=== PATIENT | male | born 1960 | race Caucasian/White ===

== ENCOUNTER 2021-01-23 10:31 | Emergency (ER) | payer OTHER ==
[2021-01-23 10:54] VITALS: BP 116/97; PULSE 120
[2021-01-23] MEDS ORDERED: Sodium Chloride 0.9% 10 ML Syringe FLUSH PRN ×2 (11:05→13:32)
[2021-01-23] MEDS ORDERED: Iopamidol 755 Mg/ML 100 ML Bottle IVPUSH ONE (13:32)
[2021-01-23] MEDS ORDERED: Sodium Chloride 0.9% 100 ML IV SCH (13:45)
--- NOTE | 2021-01-23 13:59 | EDM.PDOC ---
ED HPI GENERAL MEDICAL PROBLEM - General Chief Complaint: Cardiovascular Problem Stated Complaint: RAPID HEART RATE Time Seen by Provider: 01/23/21 10:51 Source of Information: Reports: Patient History Limitations: Reports: No Limitations - History of Present Illness INITIAL COMMENTS - FREE TEXT/NARRATIVE: The patient presents with generalized weakness and tachycardia. This has been going on for about a week. He has no fever, chills, cough, chest pain, shortness of breath, abdominal pain, nausea or vomiting. He has no history of heart problems or lung problems. His 2 weeks ago. He has been under lots of stress. He has not been around anyone who is sick. Onset: Gradual Duration: Day(s): (7) Severity: Moderate Improves with: Reports: None Worsens with: Reports: None Associated Symptoms: Reports: No Other Symptoms - Related Data Allergies Allergy/AdvReac Type Severity Reaction Status Date / Time No Known Allergies Allergy Verified 01/23/21 11:02 Home Meds: Home Meds . [No Known Home Meds] 08/17/15 [History] Past Medical History - Past Health History Medical/Surgical History: Denies Medical/Surgical History HEENT History: Reports: Impaired Vision Other HEENT History: wears eyeglasses. Gastrointestinal History: Reports: Chronic Constipation Musculoskeletal History: Reports: Fracture - Infectious Disease History Infectious Disease History: Reports: Chicken Pox, Measles - Past Surgical History HEENT Surgical History: Reports: Tonsillectomy Musculoskeletal Surgical History: Reports: ORIF, Other (See Below) Other Musculoskeletal Surgeries/Procedures:: L) knee Social & Family History - Tobacco Use Tobacco Use Status *Q: Never Tobacco User Second Hand Smoke Exposure: No - Caffeine Use Caffeine Use: Reports: None - Recreational Drug Use Recreational Drug Use: No - Living Situation & Occupation Living situation: Reports: , with Spouse Occupation: Employed ED ROS GENERAL - Review of Systems Review Of Systems: See Below Constitutional: Reports: Malaise, Weakness, Fatigue. Denies: Fever, Chills HEENT: Reports: No Symptoms Respiratory: Reports: No Symptoms Cardiovascular: Reports: Palpitations. Denies: Chest Pain Endocrine: Reports: Fatigue GI/Abdominal: Reports: No Symptoms : Reports: No Symptoms Musculoskeletal: Reports: No Symptoms ED EXAM, GENERAL - Physical Exam Exam: See Below Exam Limited By: No Limitations General Appearance: Alert, No Apparent Distress Ears: Normal External Exam Nose: Normal Inspection Head: Atraumatic, Normocephalic Neck: Normal Inspection Respiratory/Chest: No Respiratory Distress, Lungs Clear, Normal Breath Sounds Cardiovascular: Regular Rate, Rhythm, No Edema, No Murmur GI/Abdominal: Soft, Non-Tender, No Organomegaly, No Mass Back Exam: Normal Inspection Extremities: Normal Inspection #1 Interpretation EKG Date: 01/23/21 Time: 10:47 Rhythm: Other (sinus tachycardia) Rate (Beats/Min): 110 [place]: LAD-Left [place] Deviation P-Wave: Present QRS: Normal ST-T: Normal QT: Normal Course - Vital Signs Last Recorded V/S: Last Vital Signs Temp 96.1 F L 01/23/21 10:40 Pulse 120 H 01/23/21 10:40 Resp 20 01/23/21 10:40 BP 116/97 H 01/23/21 10:40 Pulse Ox 97 01/23/21 10:40 - Orders/Labs/Meds Orders: Active Orders 24 hr Category Date Time Status Cardiac Monitoring [RC] . DIRECTED Care 01/23/21 11:05 Active Peripheral IV Care [RC] . DIRECTED Care 01/23/21 11:07 Active Vital Signs [RC] Q15M Care 01/23/21 14:30 Active EPINEPHrine [Adrenalin] Med 01/23/21 14:30 Active 0.3 mg IM ASDIRECTED PRN Famotidine [Pepcid] Med 01/23/21 14:30 Active 20 mg IVPUSH ASDIRECTED PRN Sodium Chloride 0.9% [Normal Saline] 100 ml Med 01/23/21 13:45 Active IV ASDIRECTED Sodium Chloride 0.9% [Saline Flush] Med 01/23/21 11:05 Active 10 ml FLUSH ASDIRECTED PRN Sodium Chloride 0.9% [Saline Flush] Med 01/23/21 13:32 Active 10 ml FLUSH ONETIME PRN Sodium Chloride 0.9% [Saline Flush] Med 01/23/21 14:30 Active 30 ml FLUSH ASDIRECTED diphenhydrAMINE [Benadryl] Med 01/23/21 14:30 Active 50 mg IVPUSH ASDIRECTED PRN methylPREDNISolone Sod Succ [Solu-MEDROL] Med 01/23/21 14:30 Active 125 mg IVPUSH ASDIRECTED PRN Peripheral IV Insertion Adult [OM.PC] Stat Oth 01/23/21 11:05 Ordered Medication Orders Diphenhydramine HCl (Diphenhydramine 50 Mg/Ml Sdv) 50 mg IVPUSH ASDIRECTED PRN PRN Reason: hypersensitivity reaction Epinephrine HCl (Epinephrine 1 Mg/Ml Sdv) 0.3 mg IM ASDIRECTED PRN PRN Reason: hypersensitivity reaction Famotidine (Famotidine 20 Mg/2 Ml Sdv) 20 mg IVPUSH ASDIRECTED PRN PRN Reason: hypersensitivity reaction Sodium Chloride (Normal Saline) 100 mls @ 60 mls/hr IV ASDIRECTED KYLE Last Admin: 01/23/21 13:35 Dose: 60 mls/hr Documented by: MAYTE Methylprednisolone Sodium Succinate (Methylprednisolone Sodium Succinate 125 Mg/2 Ml Sdv) 125 mg IVPUSH ASDIRECTED PRN PRN Reason: hypersensitivity reaction Sodium Chloride (Sodium Chloride 0.9% 10 Ml Syringe) 10 ml FLUSH ASDIRECTED PRN PRN Reason: Keep Vein Open Last Admin: 01/23/21 11:27 Dose: 10 ml Documented by: DANIEL Sodium Chloride (Sodium Chloride 0.9% 10 Ml Syringe) 10 ml FLUSH ONETIME PRN PRN Reason: Keep Vein Open Last Admin: 01/23/21 13:35 Dose: 10 ml Documented by: MAYTE Sodium Chloride (Sodium Chloride 0.9% 10 Ml Syringe) 30 ml FLUSH ASDIRECTED [facility] Labs: Laboratory Tests 01/23/21 01/23/21 01/23/21 Range/Units 11:22 11:22 11:22 WBC 3.99 L (4.23-9.07) K/mm3 RBC 5.00 (4.63-6.08) M/mm3 Hgb 14.8 (13.7-17.5) gm/dl Hct 43.2 (40.1-51.0) % MCV 86.4 (79.0-92.2) fl MCH 29.6 (25.7-32.2) pg MCHC 34.3 (32.2-35.5) g/dl RDW Std Deviation 39.9 (35.1-43.9) fL Plt Count 304 D (163-337) K/mm3 MPV 11.5 (9.4-12.3) fl Neut % (Auto) 54.8 (34.0-67.9) % Lymph % (Auto) 30.3 (21.8-53.1) % [place] % (Auto) 11.5 (5.3-12.2) % Eos % (Auto) 1.3 (0.8-7.0) Baso % (Auto) 1.3 H (0.1-1.2) % Neut # (Auto) 2.19 (1.78-5.38) K/mm3 Lymph # (Auto) 1.21 L (1.32-3.57) K/mm3 [place] # (Auto) 0.46 (0.30-0.82) K/mm3 Eos # (Auto) 0.05 (0.04-0.54) K/mm3 Baso # (Auto) 0.05 (0.01-0.08) K/mm3 PT 10.7 (9.7-12.0) SECONDS INR 0.96 APTT 22.9 (21.7-31.4) SECONDS D-Dimer, Quantitative 2.40 H (0.19-0.50) mg/L Sodium 136 (136-145) mEq/L Potassium 3.5 (3.5-5.1) mEq/L Chloride 100 (98-107) mEq/L Carbon Dioxide 25 (21-32) mEq/L Anion Gap 14.5 (5-15) BUN 16 (7-18) mg/dL Creatinine 1.3 (0.7-1.3) mg/dL Est Cr Clr Drug Dosing 62.39 mL/min Estimated GFR (MDRD) 56 (>60) mL/min BUN/Creatinine Ratio 12.3 L (14-18) Glucose 127 H (70-99) mg/dL Calcium 9.2 (8.5-10.1) mg/dL Magnesium 2.0 (1.8-2.4) mg/dL Total Bilirubin 0.7 (0.2-1.0) mg/dL AST 46 H (15-37) U/L ALT 83 H (16-63) U/L Alkaline Phosphatase 76 (46-116) U/L Troponin I < 0.017 (0.00-0.056) ng/mL C-Reactive Protein 0.2 (<1.0) mg/dL NT-Pro-B Natriuret Pep (0-125) pg/mL Total Protein 7.2 (6.4-8.2) g/dl Albumin 3.4 (3.4-5.0) g/dl Globulin 3.8 gm/dL Albumin/Globulin Ratio 0.9 L (1-2) Free T4 1.15 (0.76-1.46) ng/dL TSH 3rd Generation 1.698 (0.358-3.74) uIU/mL SARS-CoV-2 RNA (STACEY) (NEGATIVE) 01/23/21 01/23/21 Range/Units 11:22 11:22 WBC (4.23-9.07) K/mm3 RBC (4.63-6.08) M/mm3 Hgb (13.7-17.5) gm/dl Hct (40.1-51.0) % MCV (79.0-92.2) fl MCH (25.7-32.2) pg MCHC (32.2-35.5) g/dl RDW Std Deviation (35.1-43.9) fL Plt Count (163-337) K/mm3 MPV (9.4-12.3) fl Neut % (Auto) (34.0-67.9) % Lymph % (Auto) (21.8-53.1) % [place] % (Auto) (5.3-12.2) % Eos % (Auto) (0.8-7.0) Baso % (Auto) (0.1-1.2) % Neut # (Auto) (1.78-5.38) K/mm3 Lymph # (Auto) (1.32-3.57) K/mm3 [place] # (Auto) (0.30-0.82) K/mm3 Eos # (Auto) (0.04-0.54) K/mm3 Baso # (Auto) (0.01-0.08) K/mm3 PT (9.7-12.0) SECONDS INR APTT (21.7-31.4) SECONDS D-Dimer, Quantitative (0.19-0.50) mg/L Sodium (136-145) mEq/L Potassium (3.5-5.1) mEq/L Chloride (98-107) mEq/L Carbon Dioxide (21-32) mEq/L Anion Gap (5-15) BUN (7-18) mg/dL Creatinine (0.7-1.3) mg/dL Est Cr Clr Drug Dosing mL/min Estimated GFR (MDRD) (>60) mL/min BUN/Creatinine Ratio (14-18) Glucose (70-99) mg/dL Calcium (8.5-10.1) mg/dL Magnesium (1.8-2.4) mg/dL Total Bilirubin (0.2-1.0) mg/dL AST (15-37) U/L ALT (16-63) U/L Alkaline Phosphatase (46-116) U/L Troponin I (0.00-0.056) ng/mL C-Reactive Protein (<1.0) mg/dL NT-Pro-B Natriuret Pep 76 (0-125) pg/mL Total Protein (6.4-8.2) g/dl Albumin (3.4-5.0) g/dl Globulin gm/dL Albumin/Globulin Ratio (1-2) Free T4 (0.76-1.46) ng/dL TSH 3rd Generation (0.358-3.74) uIU/mL SARS-CoV-2 RNA (STACEY) Positive H (NEGATIVE) Meds: Medications Generic Name Dose Route Start Last Admin Trade Name Freq PRN Reason Stop Dose Admin Diphenhydramine HCl 50 mg 01/23/21 14:30 Diphenhydramine 50 Mg/Ml Sdv IVPUSH ASDIRECTED PRN hypersensitivity reaction Epinephrine HCl 0.3 mg 01/23/21 14:30 Epinephrine 1 Mg/Ml Sdv IM ASDIRECTED PRN hypersensitivity reaction Famotidine 20 mg 01/23/21 14:30 Famotidine 20 Mg/2 Ml Sdv IVPUSH ASDIRECTED PRN hypersensitivity reaction Sodium Chloride 100 mls @ 60 mls/hr 01/23/21 13:45 01/23/21 13:35 Normal Saline IV 60 mls/hr ASDIRECTED KYLE Administration Methylprednisolone Sodium Succinate 125 mg 01/23/21 14:30 Methylprednisolone Sodium Succinate 125 Mg/2 Ml Sdv IVPUSH ASDIRECTED PRN hypersensitivity reaction Sodium Chloride 10 ml 01/23/21 11:05 01/23/21 11:27 Sodium Chloride 0.9% 10 Ml Syringe FLUSH 10 ml ASDIRECTED PRN Administration Keep Vein Open Sodium Chloride 10 ml 01/23/21 13:32 01/23/21 13:35 Sodium Chloride 0.9% 10 Ml Syringe FLUSH 10 ml ONETIME PRN Administration Keep Vein Open Sodium Chloride 30 ml 01/23/21 14:30 Sodium Chloride 0.9% 10 Ml Syringe FLUSH ASDIRECTED KYLE Discontinued Medications Generic Name Dose Route Start Last Admin Trade Name [place] PRN Reason Stop Dose Admin Bamlanivimab 700 mg/ 160 mls @ 310 mls/hr 01/23/21 15:00 01/23/21 15:14 Etesevimab 1,400 mg/ Sodium IV 01/23/21 15:30 310 mls/hr Chloride ONETIME ONE Administration Iopamidol 100 ml 01/23/21 13:32 01/23/21 13:35 Iopamidol 755 Mg/Ml 100 Ml Bottle IVPUSH 01/23/21 13:33 100 ml ONETIME ONE Administration - Re-Assessments/Exams Free Text/Narrative Re-Assessment/Exam: 01/23/21 14:20 I ordered an EKG, labs, and COVID. His EKG shows a sinus tachycardia with no acute changes. His WBC was low at 3.99. His D-dimer was elevated at 2.4. His glucose was elevated at 127. His AST is elevated at 46. His ALT is elevated at 83. His troponin is negative. His CRP is normal. His BNP is normal. His TSH is normal along with his T4. He is COVID [address] positive[address] I ordered a CT angio and it shows no findings of pulmonary embolism. Patchy densities within the perihilar regions within both upper and lower lungs as well as minimal peripheral densities within the left upper lung. Findings are most likely due to prominent bronchitis and perihilar pneumonia. Please rule out any symptoms of COVID disease. 01/23/21 14:32 I spoke with the patient to provide information about monoclonal antibody treatment. I offered them the Patient and Caregiver EUA REGEN-COV Fact Sheet to read and review. I stated the drug has been approved by an emergency use authorization (EUA} process and has not fully been FDA reviewed or approved. The patient meets the EUA requirements. I discussed there are other potential treatment options that are currently not FDA approved to treat COVID 19. Offered opportunity to ask questions and all questions were answered. The patient voiced understanding and agreed to proceed with treatment. I have ordered Bam for the patient. I will discharge him after that. 01/23/21 15:52 Departure - Departure Time of Disposition: 15:55 Disposition: Home, Self-Care 01 Condition: Good Clinical Impression: COVID-19, Pneumonia due to COVID-19 virus, Palpitations Referrals: PCP,None [Primary Care Provider] - Riki Lynn MD [Physician] - 1 Week Forms: ED Department Discharge Additional Instructions: Go home and rest. Drink plenty of fluids. Take tylenol or motrin for any fever or pain. If you are laying around try to lay on your stomach. That will allow the most lung tissue to be oxygenated. Please return if you are worse. Sepsis Event Note (ED) - Evaluation Sepsis Screening Result: No Definite Risk - Focused Exam Vital Signs: Vital Signs Temp Pulse Resp BP Pulse Ox 01/23/21 10:40 96.1 F L 120 H 20 116/97 H 97 - My Orders Last 24 Hours: My Active Orders 01/23/21 11:05 Cardiac Monitoring [RC] . DIRECTED Sodium Chloride 0.9% [Saline Flush] 10 ml FLUSH ASDIRECTED PRN Peripheral IV Insertion Adult [OM.PC] Stat 01/23/21 11:07 Peripheral IV Care [RC] . DIRECTED 01/23/21 13:32 Sodium Chloride 0.9% [Saline Flush] 10 ml FLUSH ONETIME PRN 01/23/21 13:45 Sodium Chloride 0.9% [Normal Saline] 100 ml IV ASDIRECTED 01/23/21 14:30 Vital Signs [RC] Q15M EPINEPHrine [Adrenalin] 0.3 mg IM ASDIRECTED PRN Famotidine [Pepcid] 20 mg IVPUSH ASDIRECTED PRN Sodium Chloride 0.9% [Saline Flush] 30 ml FLUSH ASDIRECTED diphenhydrAMINE [Benadryl] 50 mg IVPUSH ASDIRECTED PRN methylPREDNISolone Sod Succ [Solu-MEDROL] 125 mg IVPUSH ASDIRECTED PRN - Assessment/Plan Last 24 Hours: My Active Orders 01/23/21 11:05 Cardiac Monitoring [RC] . DIRECTED Sodium Chloride 0.9% [Saline Flush] 10 ml FLUSH ASDIRECTED PRN Peripheral IV Insertion Adult [OM.PC] Stat 01/23/21 11:07 Peripheral IV Care [RC] . DIRECTED 01/23/21 13:32 Sodium Chloride 0.9% [Saline Flush] 10 ml FLUSH ONETIME PRN 01/23/21 13:45 Sodium Chloride 0.9% [Normal Saline] 100 ml IV ASDIRECTED 01/23/21 14:30 Vital Signs [RC] Q15M EPINEPHrine [Adrenalin] 0.3 mg IM ASDIRECTED PRN Famotidine [Pepcid] 20 mg IVPUSH ASDIRECTED PRN Sodium Chloride 0.9% [Saline Flush] 30 ml FLUSH ASDIRECTED diphenhydrAMINE [Benadryl] 50 mg IVPUSH ASDIRECTED PRN methylPREDNISolone Sod Succ [Solu-MEDROL] 125 mg IVPUSH ASDIRECTED PRN
--- NOTE | 2021-01-23 14:02 | CT ---
CT chest Technique: Multiple axial sections were obtained through the chest. Intravenous contrast was utilized. Study has been performed as a pulmonary angiogram protocol. Comparison: No prior chest imaging is available. Findings: Pulmonary arteries are fairly well opacified. No filling defects are seen to indicate pulmonary embolism. Thoracic aorta shows no aneurysm. Several small mediastinal lymph nodes are seen which are felt to be within normal limits. No pericardial thickening is seen. Small hiatal hernia is noted. Visualized upper abdominal structures show nothing acute. Lung window settings show scattered perihilar densities within the upper and lower lungs as well as minimal peripheral density within the left upper lung. There is increased density being seen within the left subareolar region compatible with unilateral gynecomastia. Bone window settings were reviewed which show mild scattered degenerative change within the spine. No acute osseous abnormality is appreciated. Impression: 1. No findings of pulmonary embolism. 2. Patchy densities within the perihilar regions within both upper and lower lungs as well as minimal peripheral densities within the left upper lung. Findings are most likely due to prominent bronchitis and perihilar pneumonia. Please rule out any symptoms of COVID disease. 3. Small hiatal hernia. No additional acute abnormality is seen on CT study of the chest. Diagnostic code #3
[2021-01-23] MEDS ORDERED: EPINEPHrine 1 MG/ML SDV IM PRN (14:30)
[2021-01-23] MEDS ORDERED: Bamlanivimab 700 MG, ETESEVIMAB 1,400 MG in Sodium Chloride 0.9% 100 ML IV ONE ×2 (14:30→15:00)
[2021-01-23] MEDS ORDERED: Famotidine 20 MG/2 ML SDV IVPUSH PRN (14:30)
[2021-01-23] MEDS ORDERED: methylPREDNISolone Sodium Succinate 125 MG/2 ML SDV IVPUSH PRN (14:30)
[2021-01-23] MEDS ORDERED: diphenhydrAMINE 50 MG/ML SDV IVPUSH PRN (14:30)
[2021-01-23] MEDS ORDERED: Sodium Chloride 0.9% 10 ML Syringe FLUSH SCH (14:30)
== END 2021-01-23 16:47 | disposition home or self-care (01) ==
LOC: JD.ED 10:31
DX: U07.1 COVID-19 (principal); J12.82 Pneumonia due to coronavirus disease 2019; R00.2 Palpitations
CPT/HCPCS: 36415; 71275; 80053; 83735; 83880; 84439; 84443; 84484; 85025; 85379; 85610; 85730; 86140; 87635; 93005; 99285; M0245; Q0245; Q9967; U0002

== ENCOUNTER 2021-06-06 15:44 | Emergency (ER) | payer OTHER ==
[2021-06-06] MEDS ORDERED: Adenosine 12 MG/4 ML SDV ONE (15:58)
[2021-06-06] MEDS ORDERED: Adenosine 6 MG/2 ML SDV ONE (15:58)
[2021-06-06] MEDS ORDERED: Sodium Chloride 0.9% 10 ML Syringe FLUSH PRN (16:01)
[2021-06-06] MEDS ORDERED: Diltiazem 50 MG/10 ML SDV IVPUSH ONE (16:02)
[2021-06-06] MEDS ORDERED: Diltiazem 100 MG in Sodium Chloride 0.9% 100 ML IV SCH (16:15)
[2021-06-06] MEDS ORDERED: Sodium Chloride 0.9% 1,000 ML IV SCH (16:15)
[2021-06-06] MEDS ORDERED: Diltiazem 120 MG Cap.CD PO ONE (17:54)
[2021-06-06] MEDS ORDERED: Apixaban 5 MG Tab PO ONE (18:13)
[2021-06-06] MEDS ORDERED: HYDROmorphone 1 MG/ML Syringe IVPUSH ONE (18:16)
[2021-06-06 20:12] VITALS: BP 134/94; PULSE 99
== END 2021-06-06 19:56 | disposition home or self-care (01) ==
LOC: JD.ED 15:44
DX: I48.0 Paroxysmal atrial fibrillation (principal); D69.6 Thrombocytopenia, unspecified; Z86.16 Personal history of COVID-19; Z79.01 Long term (current) use of anticoagulants
CPT/HCPCS: 36415; 71045; 80053; 84443; 84484; 85025; 93005; 96365; 96366; 99285; A9270; J3490; J7030

== ENCOUNTER 2021-06-06 21:02 | Emergency (ER) | payer OTHER ==
[2021-06-06 21:34] VITALS: BP 117/94; PULSE 152
[2021-06-06] MEDS ORDERED: Diltiazem 50 MG/10 ML SDV IVPUSH STA (22:10)
[2021-06-06] MEDS ORDERED: Diltiazem 100 MG in Sodium Chloride 0.9% 100 ML IV SCH (22:15)
== END 2021-06-07 00:10 | disposition home or self-care (01) ==
LOC: JD.ED 21:02
DX: I48.92 Unspecified atrial flutter (principal); I48.91 Unspecified atrial fibrillation; E66.9 Obesity, unspecified; Z79.01 Long term (current) use of anticoagulants; Z68.41 Body mass index [BMI] 40.0-44.9, adult
CPT/HCPCS: 93005; 96365; 96366; 99284; J3490

== ENCOUNTER 2021-06-08 22:31 | Emergency (ER) | payer OTHER ==
[2021-06-08] MEDS ORDERED: Acetaminophen 325 MG Tab PO ONE (23:17)
[2021-06-08] MEDS: Nitroglycerin 0.3 MG Tab.SL SL PRN ×3 (23:35→23:45)
[2021-06-09] MEDS ORDERED: Iopamidol 755 Mg/ML 100 ML Bottle IVPUSH ONE (00:32)
[2021-06-09] MEDS ORDERED: Sodium Chloride 0.9% 10 ML SDV FLUSH ONE (00:32)
[2021-06-09] MEDS ORDERED: Sodium Chloride 0.9% 100 ML IV SCH (00:45)
[2021-06-09 03:11] VITALS: BP 130/84; PULSE 91
== END 2021-06-09 03:18 | disposition home or self-care (01) ==
LOC: JD.ED 22:31
DX: R07.89 Other chest pain (principal); I48.0 Paroxysmal atrial fibrillation; E66.9 Obesity, unspecified; Z68.41 Body mass index [BMI] 40.0-44.9, adult; Z79.01 Long term (current) use of anticoagulants
CPT/HCPCS: 36415; 71045; 71275; 80053; 84484; 85025; 85379; 85610; 93005; 99285; A9270; Q9967